=== PATIENT | female | born 1955 | race Two or more races ===

== ENCOUNTER 2017-07-27 17:36 | Inpatient (IN) | payer OTHER ==
[~2017-07-27] VITALS: Ht 152.4 cm; Wt 74.1 kg
[2017-07-27 19:58] VITALS: BP 120/71; RESP 19
[2017-07-27 20:27] VITALS: PULSE 64
[2017-07-27] MEDS ORDERED: LOSA50TA6 PO (20:39)
[2017-07-27] MEDS ORDERED: ACETAMINOPHEN 325 MG TAB PO PRN (21:30)
[2017-07-27] MEDS ORDERED: ONDANSETRON 4 MG INJ IV PRN (21:30)
[2017-07-27] MEDS: HEPARIN 5,000 UNIT/0.5 ML VIAL SC SCH (22:59)
[2017-07-27 23:56] VITALS: BP 119/77; RESP 18
[2017-07-28] VITALS (12 sets, daily range): BP systolic 92–128; BP diastolic 52–71; PULSE 56–75; RESP 18–19
[2017-07-28 03:12] LABS: BASOPHIL # 0.1 10^3/ul (0.0-0.1); BASOPHILS % 0.8 % (0.0-2.0); EOSINOPHILS # 0.1 10^3/ul (0.0-0.5); EOSINOPHILS % 2.1 % (0.0-7.0); HEMATOCRIT 37.7 % (37.0-47.0); HEMOGLOBIN 11.9 g/dl (12.0-16.0); LYMPHOCYTES # 3.4 10^3/ul (0.8-2.9); LYMPHOCYTES % 52.3 % (15.0-51.0); MEAN CORPUSCULAR HEMOGLOBIN 28.9 pg (29.0-33.0); MEAN CORPUSCULAR HGB CONC 31.6 g/dl (32.0-37.0); MEAN CORPUSCULAR VOLUME 91.5 fl (82.0-101.0); MEAN PLATELET VOLUME 11.1 fl (7.4-10.4); MONOCYTE # 0.5 10^3/ul (0.3-0.9); MONOCYTES % 7.2 % (0.0-11.0); NEUTROPHIL # 2.4 10^3/ul (1.6-7.5); NEUTROPHILS % 37.1 % (39.0-77.0); PLATELET COUNT 207 10^3/UL (140-415); RED BLOOD COUNT 4.12 10^6/ul (4.20-5.40); RED CELL DISTRIBUTION WIDTH 12.7 % (11.5-14.5); WHITE BLOOD COUNT 6.6 10^3/ul (4.8-10.8)
[2017-07-28] MEDS: morphine 2 MG INJ IV PRN ×3 (03:18→21:37)
[2017-07-28 04:37] LABS: ALBUMIN 3.3 g/dl (3.3-4.9); ALBUMIN/GLOBULIN RATIO 1.1; CALCIUM 8.9 mg/dl (8.4-10.2); CHOL/HDL RATIO 4.2 RATIO; CREATININE 0.76 mg/dl (0.44-1.00); MAGNESIUM 1.9 mg/dl (1.7-2.5); PHOSPHORUS 4.8 mg/dl (2.5-4.9); POTASSIUM 4.1 mmol/L (3.5-5.1); TOTAL PROTEIN 6.3 g/dl (6.1-8.1)
[2017-07-28 05:04] LABS: THYROID STIMULATING HORMONE 1.66 MIU/L (0.465-4.680)
--- NOTE | 2017-07-28 06:44 | HP ---
Date/Time of Note Date/Time of Note DATE: 07/28/17 TIME: 06:28 Assessment/Plan VTE Prophylaxis VTE Prophylaxis Intervention: heparin Lines/Catheters IV Catheter Type (from Nrs): Saline Lock Assessment/Plan Assessment/Plan 1. Left-sided weakness and numbness, CVA vs hemiplegic migraine -Head CT at [place] was negative for acute findings -We will obtain MRI of the brain and bilateral carotid Doppler ultrasound as well as a 2D echo -She will be placed on aspirin, statin and subcutaneous heparin for DVT prophylaxis -Will check A1c and fasting lipids in the morning -Physical therapy and speech/swallow evaluation -Neurology consult -Pain management for headache 2. Hemiplegic migraine -See #1 3. Chest pain, rule out ACS -Continue telemetry monitoring -will obtain a 12-lead EKG -Trend troponin -Supplemental oxygen, aspirin, beta-summer, statin with as needed nitro morphine -Cardiology consult 4. Hypertension: BP within acceptable range -Continue antihypertensives with adjustment as needed HPI/ROS Admit Date/Time Admit Date/Time Jul 27, 2017 at 19:24 Hx of Present Illness This is a 62-year-old female with a history of hypertension who initially presented to a clinic complaining of diffuse headache, left sided facial, arm and leg weakness/numbness, dizziness, shortness of breath and chest pain of 4 days duration. She was taken by EMS to [place] and then transferred to [facility] because of insurance reasons. Headache is diffuse with associated left periorbital pain. Chest pain includes the entire left side of her chest with associated shortness of breath. Chest x-ray and head CT at [place] were negative for any acute findings. The highest documented blood pressure at [place] was 142/83 with a heart rate ranging between 57 and 61. She denied slurred speech, facial drooping, altered mentation or seizure-like activities. Patient is accompanied by her daughter who also provided history. Per daughter, when patient was at her home country [facility] 8 years ago, she had a positive stress test. Cardiac cath was done and that they were told that it was normal. . PMH/Family/Social Social History Smoking Status: Never smoker Exam/Review of Systems Vital Signs Vitals Vital Signs Date Time Temp Pulse Resp B/P Pulse Ox O2 Delivery O2 Flow Rate FiO2 07/28/17 04:32 60 07/28/17 04:16 97.7 19 128/71 96 Intake and Output 07/27/17 07/27/17 07/28/17 15:00 23:00 07:00 Intake Total 560 ml Balance 560 ml Exam Constitutional: alert, oriented, well developed Head: atraumatic, normocephalic Eyes: EOMI, PERRL Respiratory: clear to auscultation, normal air movement Cardiovascular: nl pulses, regular rate and rhythm Gastrointestinal: non-tender, soft Extremities: normal pulses Neurological: nl mental status, nl speech Skin: other (Slightly decreased hand esl instructor and slightly decreased strength in the left upper extremity. There is also slightly decreased sensation to light touch in the left upper extremity.) Labs Result Diagram: 07/28/17 0255 07/28/17 0256 Medications Medications Current Medications Losartan Potassium (Cozaar) 50 mg DAILY PO ; Start 07/28/17 at 09:00 Aspirin (Aspirin) 81 mg DAILY PO ; Start 07/28/17 at 09:00 Atorvastatin Calcium (Lipitor) 20 mg HS PO ; Start 07/28/17 at 21:00 Heparin Sodium (Porcine) (Heparin (5000 Units/0.5 ml)) 5,000 unit BID SC Last administered on 07/27/17 22:59; Admin Dose 5,000 UNIT; Start 07/27/17 at 22: 00 Ondansetron HCl (Zofran Inj) 4 mg Q6H PRN IV NAUSEA AND/OR VOMITING; Start at 21:30 Morphine Sulfate (morphine) 2 mg Q4H PRN IV PAIN Last administered on 03:18; Admin Dose 2 MG; Start 07/27/17 at 21:30 Acetaminophen (Tylenol Tab) 650 mg Q6H PRN PO PAIN AND OR ELEVATED TEMP Last administered on 07/27/17 22:38; Admin Dose 650 MG; Start 07/27/17 at 21:30 Influenza Virus Vaccine (Fluzone) 0.5 ml ONCE ONCE IM* ; Start 07/28/17 at 09: 00; Stop 07/28/17 at 09:01 DEMIAN CARRILLO MD Jul 28, 2017 06:41
[2017-07-28] MEDS ORDERED: INFLUENZA VIRUS VACCINE 0.5 ML (DISPENSING) IM* ONE (09:00)
--- NOTE | 2017-07-28 09:35 | RADRPT ---
PROCEDURE: US Carotids. CLINICAL INDICATION: bruit , left sided weakness TECHNIQUE: Multiple sonographic of the carotid bifurcation region and vertebral arteries were obta ined utilizing maher scale, duplex and color-flow imaging. The images were reviewed on a PACS worksta tion. COMPARISON: No prior studies are available for comparison. FINDINGS: Evaluation of the right carotid bifurcation region reveals no significant calcific atherosclerotic d isease. Evaluation of the left carotid bifurcation region reveals no significant calcific atherosclerotic di sease. There is antegrade flow within the vertebral arteries bilaterally. RIGHT CAROTID MEASUREMENTS: Common Carotid Ohnenb66.3 (cm/sec) Internal Carotid Artery - dqpjaplk67 (cm/sec) Internal Carotid Artery - mid54.3 (cm/sec) Internal Carotid Artery - .4 (cm/sec) Internal Carotid/Common Carotid1.49 LEFT CAROTID MEASUREMENTS: Common Carotid Rclber00.6 (cm/sec) Internal Carotid Artery - nusarwpr54.8 (cm/sec) Internal Carotid Artery - mid81.1 (cm/sec) Internal Carotid Artery - nthiff95 (cm/sec) Internal Carotid/Common Carotid1.2 RPTAT: AA IMPRESSION: No evidence for hemodynamically significant stenosis in the bilateral internal carotid arteries - va lidated velocity measurements with angiographic measurements, velocity criteria are extrapolated fro m diameter data as defined by the Society of Radiologists in Ultrasound Consensus Conference Radiolo gy 2003; 229;340-346. This study does indirectly reference the measurement of the distal ICA diamet er as the denominator for stenosis measurement. Normal antegrade flow in the vertebral arteries bilaterally. .Mauricio Cobb MD, Date Time Electronically viewed and signed by .Mauricio Cobb MD, MD on 07/28/2017 09:35 .S/
[2017-07-28] MEDS: LOSARTAN 50 MG TAB PO SCH (09:58)
[2017-07-28] MEDS: ASPIRIN 81 MG TAB PO SCH (09:59)
[2017-07-28] MEDS: HEPARIN 5,000 UNIT/0.5 ML VIAL SC SCH ×2 (10:00→20:48)
--- NOTE | 2017-07-28 17:08 | RADRPT ---
PROCEDURE: MRI Brain without contrast. CLINICAL INDICATION: Left-sided weakness TECHNIQUE: Multiplanar MRI of the brain without contrast was performed on a 3.0 T scanner with the following sequences obtained: T1-weighted, T2-weighted/FLAIR, diffusion weighted (with ADC map), GR E. COMPARISON: None available FINDINGS: No acute/recent ischemic infarction or intracranial hemorrhage / blood degradation products are iden tified. No extra-axial fluid collection is seen. There is no mass effect. No midline shift is identified. The ventricles and sulci are within normal limits for size and configuration. Minimal scattered areas of increased T2 / FLAIR signal intensity are present in the periventricular - deep white matter. Sella appears partly empty. Flow voids are identified in the proximal intracranial arteries and dural sinuses suggesting patency . The mastoid air cells and paranasal sinuses are grossly clear. IMPRESSION: 1. No evidence of acute intracranial pathology. 2. Minimal chronic small vessel ischemic changes. RPTAT: QQ .Oscar Conteh MD, Date Time Electronically viewed and signed by .Oscar Conteh MD, on 07/28/2017 17:07 .O/
[2017-07-28] MEDS ORDERED: ATORVASTATIN 20 MG TAB PO SCH (21:00)
[2017-07-29] VITALS (7 sets, daily range): BP systolic 101–109; BP diastolic 58–61; PULSE 61–80; RESP 16–18
[2017-07-29 06:41] LABS: BASOPHIL # 0.1 10^3/ul (0.0-0.1); BASOPHILS % 0.7 % (0.0-2.0); EOSINOPHILS # 0.1 10^3/ul (0.0-0.5); EOSINOPHILS % 1.8 % (0.0-7.0); HEMOGLOBIN 12.8 g/dl (12.0-16.0); LYMPHOCYTES % 44.6 % (15.0-51.0); MEAN CORPUSCULAR HEMOGLOBIN 29.7 pg (29.0-33.0); MEAN CORPUSCULAR VOLUME 92.8 fl (82.0-101.0); MEAN PLATELET VOLUME 11.5 fl (7.4-10.4); MONOCYTE # 0.5 10^3/ul (0.3-0.9); MONOCYTES % 7.2 % (0.0-11.0); NEUTROPHILS % 45.4 % (39.0-77.0); PLATELET COUNT 218 10^3/UL (140-415); RED BLOOD COUNT 4.31 10^6/ul (4.20-5.40); RED CELL DISTRIBUTION WIDTH 12.6 % (11.5-14.5); WHITE BLOOD COUNT 6.7 10^3/ul (4.8-10.8)
[2017-07-29 07:27] LABS: CALCIUM 8.9 mg/dl (8.4-10.2); CREATININE 0.71 mg/dl (0.44-1.00); POTASSIUM 3.9 mmol/L (3.5-5.1)
[2017-07-29] MEDS: HEPARIN 5,000 UNIT/0.5 ML VIAL SC SCH (08:36)
[2017-07-29] MEDS: ASPIRIN 81 MG TAB PO SCH (08:37)
[2017-07-29] MEDS: LOSARTAN 50 MG TAB PO SCH (08:44)
[2017-07-29] MEDS: morphine 2 MG INJ IV PRN (09:09)
--- NOTE | 2017-07-29 14:33 | PDOCDIS ---
Discharge Instructions CONDITION Patient Condition: Good HOME CARE INSTRUCTIONS: Diet Instructions: Reduced Calorie ACTIVITY: Activity Restrictions: No Restrictions FOLLOW UP/APPOINTMENTS Follow-up Plan F/U WITH YOUR PCP IN 1-2 WEEKS LYDIA BROOKS Jul 29, 2017 14:33
--- NOTE | 2017-07-29 18:46 | DS ---
Date/Time of Note Date/Time of Note DATE: 07/29/17 TIME: 18:40 Discharge Summary Admission/Discharge Info Admit Date/Time Jul 27, 2017 at 19:24 Discharge Date/Time Jul 29, 2017 at 15:20 Discharge Diagnosis 1. Headache with left-sided weakness and numbness secondary to hemiplegic migraine-improved Patient has no prior history of prior migraines, have recommended over-the- counter headache medications and weight loss MRI and carotid ultrasound show no significant findings Blood pressure, A1c and lipid panel within normal limits 2. Chest pain secondary to muscular pain No evidence of ACS with negative troponins -Continue telemetry monitoring 3. Hypertension-stable Continue home losartan 4. Obesity Lifestyle changes advised Patient Condition: Good Hospital Course Patient is a 62-year-old female with a history of obesity and hypertension who presents with diffuse headache, left sided facial, arm and leg weakness/numbness, dizziness, shortness of breath and chest pain of 4 days duration. Patient had a brain MRI that was within normal limits, carotid ultrasound were normal and ACS was ruled out. Patient had a migraine hemiplegia and weakness did improve. Patient had no evidence of diabetes or dyslipidemia and on day of discharge patient vitals labs physical exam are stable. She had no acute complaints and weakness had improved, patient's questions were answered and she was advised to take [id number] headache medications as this is her first episode of migraines. Patient was also advised on weight loss. . Home Meds Reported Medications Losartan Potassium* (Losartan Potassium*) 50 Mg Tablet, 50 MG PO DAILY, TAB 07/27/17 Follow-up Plan F/U WITH YOUR PCP IN 1-2 WEEKS Primary Care Provider Not On Staff Doctor Time spent on discharge: > 30 minutes LYDIA BROOKS Jul 29, 2017 18:46
--- NOTE | 2017-07-30 18:15 | RADRPT ---
Echocardiogram Report Patient Name: MANDEEP WOLF Gender: Female Date: 1955 Study Date: 28-Jul-2017 Automobiles Salesperson: DONNELL Location: I Ref. Physician: DEMIAN CARRILLO Quality: Adequate Procedures: Transthoracic echocardiogram with complete 2D, M-Mode, and Doppler examination. Indications: Cerebrovascular Accident. 2D/M Mode Doppler Measurement Value Normal Ranges Measurement Value Normal Ranges AoR Diam MM 2.9 cm AV Peak Arpit 1.4 m/sec ACS MM 1.8 cm AV Peak PG 7.7 mmHg LVIDd 2D 3.9 3.5 - 5.6 cm LVOT Peak Arpit 1.0 m/sec LVIDs 2D 2.1 2.1 - 4.1 cm LVOT Peak PG 3.9 mmHg LVPWd 2D 0.8 0.6 - 1.1 cm MV E Peak Arpit 0.8 m/sec IVSd 2D 1.1 0.6 - 1.1 cm MV A Peak Arpit 0.8 m/sec EDV 2D 66.1 cm3 MV E/A 0.9 ESV 2D 8.9 cm3 MV Decel Time 163 msec LA Dimen 2D 3.8 2.3 - 4.0 cm MV Decel [place] 5 MV E/A 0.9 TR Peak Arpit 2.0 m/sec TR Peak PG 16.2 mmHg PV Peak Arpit 0.9 m/sec PV Peak PG 4.0 mmHg RVSP 19.2 mmHg Findings Left Ventricle: Normal left ventricular systolic function. Normal left ventricular cavity size. Normal left ventricular wall thickness. Ejection fraction is visually estimated at 60 %. Tissue Doppler/Mitral Doppler indices are consistent with impaired relaxation (Stage I diastolic dysfunction). E/E`=7. Right Ventricle: Normal right ventricular size. Normal right ventricular systolic function. Left Atrium: The left atrium is normal in size. Right Atrium: The right atrium is normal in size. Atrial Septum: Normal atrial septum. Mitral Valve: Normal appearance and function of the mitral valve with trace physiologic regurgitation. Aortic Valve: No significant aortic stenosis or insufficiency. Normal trileaflet aortic valve structure. Tricuspid Valve: Normal appearance and function of the tricuspid valve with trace physiologic regurgitation. Estimated peak PA systolic pressure 19 mmHg. Pulmonic Valve: Normal pulmonic valve appearance. No evidence of pulmonic regurgitation. Pericardium: Normal pericardium with no significant pericardial effusion. No pleural effusion noted. Aorta: Normal aortic root. IVC: Normal size and normal respiratory collapse consistent with normal right atrial pressure. Pulmonary Artery: Normal pulmonary artery size. Conclusions 1.Normal left ventricular systolic function. Normal left ventricular cavity size. Normal left ventricular wall thickness. Ejection fraction is visually estimated at 60 %. Tissue Doppler/Mitral Doppler indices are consistent with impaired relaxation (Stage I diastolic dysfunction). E/E`=7. 2.Normal appearance and function of the mitral valve with trace physiologic regurgitation. 3.Normal appearance and function of the tricuspid valve with trace physiologic regurgitation. Estimated peak PA systolic pressure 19 mmHg. Electronically Signed By: Artie Soto 30-Jul-2017 18:15:23 -0700 Patient Name: MANDEEP WOLF Study Date: 28-Jul-2017 [id number]
== END 2017-07-29 15:20 | disposition home or self-care (01) | DRG 103 ==
LOC: TEL 19:24
PROVIDERS: ADMIT Internal Medicine; ATTEND Internal Medicine
DX: G43.409 Hemiplegic migraine, not intractable, without status migrainosus (principal); I10 Essential (primary) hypertension; R07.9 Chest pain, unspecified
CPT/HCPCS: 70551; 80048; 80053; 80061; 83036; 83735; 84100; 84443; 84484; 85025; 90686; 92610; 93306; 93880; 97161; J1644; J2270

== ENCOUNTER 2019-02-24 08:08 | Day surgery (SDC) | payer OTHER ==
[~2019-02-24] VITALS: Ht 152.4 cm; Wt 68.9 kg
[2019-02-24] VITALS (7 sets, daily range): BP systolic 89–122; BP diastolic 60–67; PULSE 60–78; RESP 16–20; Ht 152.4 cm; Wt 68.9 kg
[~2019-02-24 08:08] MED LIST: LOSA50TA14 PO
--- NOTE | 2019-02-24 10:58 | PREAC ---
Date/Time of Note Date/Time of Note DATE: 02/24/19 TIME: 10:55 Anesthesia Eval and Record Evaluation Time Pre-Procedure Interview DATE: 02/24/19 TIME: 10:55 Age 63 Sex female NPO: 8 hrs Preoperative diagnosis Gastritis, constipation Planned procedure EGD, Colonoscopy Past Medical History Past Medical History: Includes Cardio: HTN GI: Obesity Surgery & Anesthesia Issues No known issue Meds Anticoagulation: No Beta Matt within 24 hr: No Reason Beta Matt not given: Pt. not on B-Matt Reported Medications Losartan Potassium* (Losartan Potassium*) 50 Mg Tablet, 50 MG PO DAILY, TAB 07/27/17 Meds reviewed: Yes Allergies Coded Allergies: Penicillins (Verified Allergy, Severe, rash, 07/27/17) Allergies Reviewed: Yes Labs/Studies Labs Reviewed: Reviewed by anesthesiologist test: N/A Pre-procedure Exam Airway: Adequate mouth opening Mallampati: Mallampati II Teeth: Normal Lung: Normal Heart: Normal ASA Physical Status ASA physical status: 3 Emergency: None Planned Anesthetic General/MAC: MAC Pre-operative Attestations Prior to commencing anesthesia and surgery, the patient was re-evaluated, there was verification of: *The patient's identity *The results of appropriate recent lab work and preoperative vital signs *The above evaluation not changing prior to induction *Anesthetic plan, risk benefits, alternative and complications discussed with patient/family; questions answered; patient/family understands, accepts and wishes to proceed. CULLEN LOW MD February 24, 2019 10:58
[2019-02-24] MEDS ORDERED: PROPOFOL 40 ML ONE (10:59)
--- NOTE | 2019-02-24 11:01 | HPN ---
Date/Time of Note Date/Time of Note DATE: 02/24/19 TIME: 11:01 Interval H&P Admission Note Pt. seen H&P reviewed: No system changes ARMANI BRISCOE February 24, 2019 11:01
[2019-02-24] MEDS ORDERED: ASPIRIN (11:04)
[2019-02-24] MEDS ORDERED: TYLENOL (11:04)
--- NOTE | 2019-02-24 11:49 | PAC ---
Date/Time of Note Date/Time of Note DATE: 02/24/19 TIME: 11:48 Post-Anesthesia Notes Post-Anesthesia Note Activity: WNL Respiratory function: WNL Cardiovascular function: WNL Mental status: Baseline Pain reasonably controlled: Yes Hydration appropriate: Yes Nausea/Vomiting absent: Yes CULLEN LOW MD February 24, 2019 11:49
== END 2019-02-24 13:22 | disposition home or self-care (01) ==
LOC: GIL 08:08
PROVIDERS: ATTEND Internal Medicine Gastroenterology
DX: Z12.11 Encounter for screening for malignant neoplasm of colon (principal); D12.3 Benign neoplasm of transverse colon; I10 Essential (primary) hypertension
CPT/HCPCS: 43239; 45380; 88305; 88312; Z7610